=== PATIENT | female | born 2000 | race Caucasian/White ===

== ENCOUNTER 2025-02-13 08:00 | Inpatient (IN) | payer OTHER ==
[2025-02-13] MEDS: ELECTROLYTE-148 SOLN 1,000 ML IV SCH (08:45)
[2025-02-13 09:08] VITALS: BMI 33.5
[2025-02-13 09:46] LABS: ABSOLUTE IMMATURE GRANULOCYTES 0.04 x10^3/uL (0.0-0.031); BASOPHILS # 0.01 x10^3/uL (0.01-0.08); EOSINOPHIL % 0.1 % (0.7-5.8); EOSINOPHILS # 0.01 x10^3/uL (0.04-0.36); HEMATOCRIT 41.7 % (34.1-44.9); HEMOGLOBIN 13.6 g/dL (11.2-15.7); MCHC 32.6 g/dl (32.2-35.5); MEAN CELL VOLUME 87.8 fl (79.4-94.8); MEAN PLT VOLUME 10.8 fl (9.4-12.3); MONOCYTE # 0.37 x10^3/uL (0.24-0.86); MONOCYTE % 3.3 % (4.7-12.5); PLATELET COUNT 180 x10^3/uL (182-369)
[2025-02-13 09:57] LABS: INR 1.01 (0.83-1.09)
[2025-02-13 10:06] LABS: BLOOD UREA NITROGEN 9.6 mg/dL (7-18); CALCIUM 9.2 mg/dL (8.5-10.1)
[2025-02-13] MEDS ORDERED: FENTANYL/BUPIVACAINE/NS/PF - PCEA - 50 ML DISP.SYRIN EP ONE (10:37)
[2025-02-13] MEDS: FENTANYL/BUPIVACAINE/NS/PF - PCEA - 50 ML DISP.SYRIN EP SCH (10:55)
[2025-02-13 10:57] LABS: CREATININE 0.5 mg/dL (0.55-1.3)
[2025-02-13] MEDS ORDERED: NALOXONE HCL 0.4 MG/ML VIAL IVPUSH PRN (11:00)
[2025-02-13] MEDS ORDERED: OXYTOCIN 20 UNITS in 0.9% NS 20 UNIT/1,000 ML INFUS.BAG IV ONE (11:19)
[2025-02-13] MEDS: OXYTOCIN 20 UNITS in 0.9% NS 20 UNIT/1,000 ML INFUS.BAG IV SCH (12:35)
[2025-02-13 13:18] VITALS: RESP 18
[2025-02-13] MEDS: METHYLERGONOVINE MALEATE 0.2 MG/1 ML AMP IM PRN (14:15)
[2025-02-13] MEDS ORDERED: WITCH HAZEL 50% (TUCKS) 40 PAD/JAR PAD TP PRN (16:11)
[2025-02-13] MEDS ORDERED: BISACODYL 10 MG SUPP.RECT RC PRN (16:11)
[2025-02-13] MEDS ORDERED: BENZOCAINE 28 GM HEMORRHOIDAL OINTMENT TP PRN (16:11)
[2025-02-13] MEDS ORDERED: BENZOCAINE 20% 57 GM BOTTLE TP PRN (16:11)
[2025-02-13] MEDS ORDERED: ACETAMINOPHEN 325 MG TABLET (FP) PO PRN (16:11)
[2025-02-13] MEDS: IBUPROFEN 600 MG TABLET (FP) PO PRN (16:40)
[2025-02-14 08:41] LABS: ABSOLUTE IMMATURE GRANULOCYTES 0.04 x10^3/uL (0.0-0.031); BASOPHILS # 0.02 x10^3/uL (0.01-0.08); EOSINOPHIL % 0.3 % (0.7-5.8); EOSINOPHILS # 0.03 x10^3/uL (0.04-0.36); HEMATOCRIT 37.6 % (34.1-44.9); HEMOGLOBIN 12.4 g/dL (11.2-15.7); MEAN CELL VOLUME 88.3 fl (79.4-94.8); MEAN PLT VOLUME 11.6 fl (9.4-12.3); MONOCYTE # 0.76 x10^3/uL (0.24-0.86); MONOCYTE % 7.1 % (4.7-12.5); PLATELET COUNT 183 x10^3/uL (182-369); RDW 14.2 % (12.1-16.5)
[2025-02-14] MEDS: METHYLERGONOVINE MALEATE 0.2 MG/1 ML AMP IM ONE (21:39)
[2025-02-14] MEDS: OXYTOCIN 20 UNITS in 0.9% NS 20 UNIT/1,000 ML INFUS.BAG IV SCH (21:39)
[2025-02-14] MEDS ORDERED: SENNOSIDES/DOCUSATE COMBO (SENNA PLUS) TABLET (UD) PO PRN (22:00)
[2025-02-15 08:57] VITALS: BP 121/69; PULSE 81; TEMP 98.6
[2025-02-24 10:41] LABS: POC NITRAZINE NEG
== END 2025-02-15 17:52 | disposition home or self-care (01) | DRG 560 ==
LOC: JDEL 08:00 → JLDR 08:25 → J3W 15:00
PROVIDERS: ADMIT Obstetrics & Gynecology; ATTEND Obstetrics & Gynecology
PROC: 10E0XZZ Delivery of Products of Conception, External Approach (ICD-10-PCS; principal; 2025-02-13)
PROC: 0W8NXZZ Division of Female Perineum, External Approach (ICD-10-PCS; 2025-02-13)
PROC: 0UQGXZZ Repair Vagina, External Approach (ICD-10-PCS; 2025-02-13)
DX: O71.4 Obstetric high vaginal laceration alone (principal); Z3A.38 38 weeks gestation of pregnancy; Z37.0 Single live birth
CPT/HCPCS: 36415; 59409; 80048; 83986-QW; 85025; 85610; 85730; 86780; 86850; 86900; 86901